=== PATIENT | male | born 1975 | race Caucasian/White ===

== ENCOUNTER 2018-03-19 05:55 | Day surgery (SDC) | payer OTHER ==
[~2018-03-19] VITALS: Ht 185.4 cm; Wt 88.5 kg
[2018-03-19] MEDS ORDERED: fentaNYL CITRATE/PF 100 MCG/2 ML AMP IVP PRN ×2 (08:00)
[2018-03-19] MEDS ORDERED: ONDANSETRON HCL 4 MG/2 ML VIAL IVP PRN (08:00)
[2018-03-19] MEDS ORDERED: MIDAZOLAM HCL 5 MG/ML VIAL (VERSED) IV ONE (10:00)
[2018-03-19] MEDS ORDERED: OXYMETAZOLINE HCL 0.05% NASAL SPRAY NS ONE (10:00)
[2018-03-19] MEDS ORDERED: EPINEPHrine 1 MG/ML AMP ONE (10:00)
[2018-03-19] MEDS ORDERED: MUPIROCIN 2% TOPICAL OINTMENT 22 GM ONE (10:00)
[2018-03-19] MEDS ORDERED: NS 250 ML IV.SOLN IV ONE (10:00)
[2018-03-19] MEDS ORDERED: ONDANSETRON HCL 4 MG/2 ML VIAL ONE ×2 (10:00→10:15)
[2018-03-19] MEDS ORDERED: PROPOFOL 200MG/ 20ML VIAL (DIPRIVAN) IV ONE (10:00)
[2018-03-19] MEDS ORDERED: SEVOFLURANE 15 MIN GAS INH ONE (10:00)
[2018-03-19] MEDS ORDERED: WATER FOR IRRIGATION,STERILE 1,000 ML IRRIG.SOLN IR ONE (10:00)
[2018-03-19] MEDS ORDERED: fentaNYL CITRATE/PF 100 MCG/2 ML AMP ONE ×2 (10:00→10:30)
[2018-03-19] MEDS ORDERED: ROCURONIUM BROMIDE 10 MG/ML (ZEMURON) ONE (10:00)
[2018-03-19] MEDS ORDERED: DEXAMETHASONE SOD PHOSPHATE 4 MG/ML VIAL ONE (10:00)
[2018-03-19] MEDS ORDERED: NS IRRIG SOLN 1000 ML IR ONE (10:00)
[2018-03-19] MEDS ORDERED: LR 1,000 ML IV.SOLN IV ONE (10:00)
[2018-03-19] MEDS ORDERED: LIDOCAINE/EPI 1% 1:100000 20 ML VIAL INJ ONE (10:00)
[2018-03-19 11:03] VITALS: BP_SYST 137
[2018-03-19] MEDS ORDERED: HYDROcodone/ACETAMIN 5-325 MG TAB (NORCO/ VICODIN) ONE (11:58)
[2018-03-19] MEDS ORDERED: HYDROcodone/ACETAMIN 5-325 MG TAB (NORCO/ VICODIN) PO ONE (12:00)
== END 2018-03-19 14:45 | disposition home or self-care (01) ==
LOC: SMU 05:55 → SDS 05:55
PROVIDERS: ATTEND Otolaryngology
DX: J34.2 Deviated nasal septum (principal); J32.9 Chronic sinusitis, unspecified; J34.89 Other specified disorders of nose and nasal sinuses; Z98.890 Other specified postprocedural states
CPT/HCPCS: 30140; 30520; 31255; 31267; 31296; 31297; 87070; 87075; 87101; 87186; 88305; 88311; C1726; J0171; J1100; J2250; J2405; J2704; J3010; J7050; J7120; 88304